=== PATIENT | female | born 1955 | race Caucasian/White ===

== ENCOUNTER → 2021-07-29 15:51 | Outpatient (CLI) | payer MEDICARE, SELFPAY ==
--- NOTE | ~2021-07-29 | MM_ITS ---
EXAMINATION: MM screening [facility] BI w cheri HISTORY: Screening mammogram TECHNIQUE: Craniocaudal and mediolateral oblique 3-D tomosynthesis images were obtained and synthetic 2-D images were generated. CAD analysis was submitted and interpreted. COMPARISON: 09/01/2014, 11/01/2010 BREAST PARENCHYMAL COMPOSITION: There are scattered areas of fibroglandular density. FINDINGS: There is no evidence of suspicious mass, calcification, or architectural distortion to sugg est malignancy in either breast. There has been no suspicious interval change. IMPRESSION: 1. No mammographic evidence of malignancy. 2. Recommend routine screening mammography in one year. BI-RADS Category 1: Negative Reviewed, dictated and finalized at location A.
== END ==
PROVIDERS: PCP Family Medicine; Visit Provider Family Medicine
DX: Z12.31 Encounter for screening mammogram for malignant neoplasm of breast (principal)
CPT/HCPCS: 77063; 77067

== ENCOUNTER → 2022-12-22 12:34 | Outpatient (CLI) | payer MEDICARE, SELFPAY ==
--- NOTE | ~2022-12-22 | MM_ITS ---
EXAMINATION: MM screening [facility] w cheri HISTORY: Screening mammogram TECHNIQUE: Craniocaudal and mediolateral oblique 3-D tomosynthesis images were obtained and synthetic 2-D images were generated. CAD analysis was submitted and interpreted. COMPARISON: 07/29/2021, 08/2014 bilateral screening mammogram examinations BREAST PARENCHYMAL COMPOSITION: There are scattered areas of fibroglandular density. FINDINGS: There is no evidence of suspicious mass, calcification, or architectural distortion to sugg est malignancy in either breast. There has been no suspicious interval change. IMPRESSION: 1. No mammographic evidence of malignancy. 2. Recommend routine screening mammography in one year. BI-RADS Category 1: Negative Reviewed, dictated and finalized at location A. [facility]
== END ==
PROVIDERS: PCP Family Medicine; Visit Provider Family Medicine
DX: Z12.31 Encounter for screening mammogram for malignant neoplasm of breast (principal)
CPT/HCPCS: 77063; 77067

== ENCOUNTER 2023-02-08 15:20 | Emergency (ER) | payer MEDICARE, SELFPAY ==
[2023-02-08] VITALS (18 sets, daily range): BP systolic 134–173; BP diastolic 62–80; PULSE 90–100; RESP 16–19; TEMP 37.1–37.3; O2SAT 92–100
--- NOTE | ~2023-02-08 | CT_ITS ---
EXAMINATION: CTA chest PE protocol DATE: 02/08/2023 21:26 INDICATION: Cough TECHNIQUE: Computed tomography angiography (CTA) of the chest was performed with 100 mL Omnipaque-350 intravenous contrast timed to evaluate the pulmonary arteries. Coronal maximum intensity projection 3D-reconstructions were created by the technologist. The dose-length product (DLP) was 243.73 mGy-cm. Automated exposure control and iterative reconstruction technique were employed. COMPARISON: 11/19/2010 FINDINGS: The pulmonary arteries are well-opacified. No pulmonary embolism is identified. There is ch ronic mucous impaction in the right lower lobe bronchus. The lungs are free of acute opacities. There is a 2 mm nodule of the left lower lobe. There is a 3 mm nodule of the right upper lobe. No pleural effusion or pneumothorax. Suture anchors are noted in the right humeral head. No pathologically enlar ged thoracic lymph nodes are identified. The heart size is normal. There is moderate thoracic spondyl osis. Calcified paratracheal and subcarinal lymph nodes are consistent with old granulomatous disease . IMPRESSION: 1. No pulmonary embolism or acute cardiopulmonary abnormality. Reviewed, dictated and finalized at location F.
--- NOTE | ~2023-02-08 | XR_ITS ---
EXAMINATION: XR chest 2V DATE: 02/08/2023 18:37 INDICATION: Cough TECHNIQUE: Frontal and lateral views of the chest are obtained COMPARISON: 11/19/2010 FINDINGS: The lungs are free of acute opacities. No pleural effusion or pneumothorax. The cardiomedia stinal silhouette is normal. There is severe thoracic spondylosis. There is S-shaped curvature of the thoracic spine. Suture anchors are noted in the right humeral head. IMPRESSION: 1. No acute cardiopulmonary abnormality. Reviewed, dictated and finalized at location F.
--- NOTE | ~2023-02-08 | CT_ITS ---
EXAMINATION: CT brain wo con INDICATION: Dizziness COMPARISON: None TECHNIQUE: Standard unenhanced head CT. The dose-length product (DLP) was 605.33 mGy-cm. The mA was a djusted according to patient size. Iterative reconstruction technique was employed. FINDINGS: There is no intracranial hemorrhage, acute infarction, or abnormal mass lesion. The ventric les are normal. There is no abnormal mass effect or midline shift. The wray-white matter differentiat ion is normal. The basal cisterns are patent. The orbits are normal. There is near complete opacifica tion of the visualized paranasal sinuses. The paranasal sinuses, mastoids and calvarium are normal. IMPRESSION: 1. No acute intracranial abnormality. 2. Pansinusitis. Reviewed, dictated and finalized at location F.
--- NOTE | 2023-02-08 15:29 | ECG_ITS ---
Measurements Intervals [place] Rate: 94 P: 34 [place]: 151 QRS: 53 QRSD: 78 T: 47 QT: 379 QTc: 476 Interpretive Statements SINUS RHYTHM BASELINE ARTIFACT NONSPECIFIC ST & T-WAVE ABNORMALITY BORDERLINE ECG NO PREVIOUS ECG AVAILABLE FOR COMPARISON Electronically Signed On 02-09-2023 16:30:05 CDT by Willi Crystal M.D.
--- NOTE | 2023-02-08 16:09 | PC.NURSE ---
Pt states she thinks she has UTi and urine specimen collected
--- NOTE | 2023-02-08 17:39 | ED.URI ---
HPI - URI/Sore Throat General Chief Complaint: Upper Respiratory Infection Stated Complaint: URI Time Seen by Provider: 02/08/23 17:38 Source: patient Mode of arrival: ambulatory Limitations: no limitations History of Present Illness HPI Narrative: Patient is a 67-year-old female with a history of depression, osteoarthritis presenting to the emergency department for evaluation of left ear pain, cough, shakiness. Patient reports symptoms began last week when she had subjective fever, chills and developed a runny nose and cough patient denied sore throat. Patient states that symptoms have persisted over the past week however reports no recurrent fever. She denies nausea or vomiting. She reports frontal chest pressure over the past 48 hours. She reports cough without hemoptysis or abnormal sputum changes. Patient denies wheezing. She does not smoke. She denies pleuritic pain. She does report shortness of breath. Patient denies recent sick contacts. No known history of symptomatic COVID infection. Patient denies leg swelling or calf pain. Patient denies any discharge from the ear. She reports mild dizziness. Related Data Home Medications Medication Instructions Recorded Confirmed cholecalciferol (vitamin D3) 25 1,000 unit PO DAILY 09/24/19 08/28/22 mcg (1,000 unit) capsule Allergies Allergy/AdvReac Type Severity Reaction Status Date / Time duloxetine Allergy Unknown Unknown Verified 02/08/23 17:42 paroxetine Allergy Unknown Unknown Verified 02/08/23 17:42 tetracycline Allergy Unknown Unknown Verified 02/08/23 17:42 Review of Systems Review of Systems: CONSTITUTIONAL: Reports resolved subjective fever EYES: Denies visual changes, redness, or discharge. ENT: Reports rhinorrhea and congestion, denies sore throat, reports left ear pain CARDIOVASCULAR: Reports chest pain without palpitations, or edema. RESPIRATORY: Reports cough and shortness of breath GASTROINTESTINAL: Denies abdominal pain, nausea, vomiting, or diarrhea. GENITOURINARY: Denies dysuria or hematuria. SKIN: Denies rash or itching. MUSCULOSKELETAL: Denies back pain, joint pain, or myalgia. NEUROLOGIC: Denies headache, numbness, or weakness. Reports shakiness, dizziness PSYCHIATRIC: Reports history of anxiety PMFSH Past Medical History Medical History Acid reflux Anxiety BMI 28.0-28.9,adult BMI 29.0-29.9,adult Depression GERD without esophagitis Headache Osteoarthritis of left knee Pain of right thumb Screening mammogram, encounter for Surgical History Surgical History History of hysterectomy History of left hip replacement History of repair of right rotator cuff History of right hip replacement History of right knee joint replacement History of spinal fusion L4 & L5 Status post fusion of wrist Left Family History Family History Father Alzheimer disease Mother Sibling No problems noted. Social History Social History Smoking status: Never smoker Second hand tobacco smoke exposure: No Alcohol intake: former Substance use: current Substance use type: marijuana Living arrangements: with family Occupation/Education: retired Additional occupation/education comments: [employer]. Gender identity (if verbalized by the patient): Female Exam Narrative: GENERAL: Awake, alert, conversant, pt tremulous and anxious appearing HEAD: Normocephalic, atraumatic. EYES: PERRLA and EOMI. ENT: Nares clear, no rhinorrhea or epistaxis. Mucous membranes moist. Tympanic membranes clear bilaterally without effusion, bulging, erythema or perforation. NECK: Supple. CHEST: No respiratory distress, breathing even and non labored, lungs are clear to auscultation bilaterally without wheezing, rhonchi, r
[2023-02-08] MEDS: LORazepam (*CRX) 1 MG TABLET PO (18:30)
--- NOTE | 2023-02-08 18:32 | PC.NURSE ---
Pt to CT and XRAY via stretcher at this time.
[2023-02-08 18:54] LABS: Appearance Urine Clear (Clear); Bacteria Urine None Seen /hpf; Bilirubin Urine Negative (Negative); Blood Urine 1+ (Negative); Color Urine Yellow (Yellow); Glucose Urine UA Negative (Negative); Ketones Urine Trace mg/dL (Negative); Leukocyte Esterase Ur Trace LEU/UL (Negative); Need Manual Microscopic Reviewed; Nitrate Urine Negative (Negative); Non Pathogenic Casts 0-2; Protein Urine Negative (Negative); Specific Grav Ur 1.003 (1.001-1.035); Squamous Epithelial Cell Urine None seen /hpf (Few); Urobilinogen Urine 0.2 mg/dL (<2.0); WBC Urine 0-5 /hpf; pH Urine 7.5 (5.0-9.0)
[2023-02-08 18:55] LABS: Add Urine Microscopic? YES
[2023-02-08 19:00] LABS: Influenza A QL RT-PCR Negative (Negative); Influenza B QL RT-PCR Negative (Negative); SARS-CoV-2 RNA PCR Negative
--- NOTE | 2023-02-08 19:22 | PC.NURSE ---
Patient report received from ADRIAN Palm. All questions answered and care of patient assumed.
[2023-02-08 19:49] LABS: Basophils Absolute Auto 0.1 K/mm3 (0.0-0.1); Basophils Percent Auto 0.5 % (0.2-1.2); Hematocrit 44.1 % (37.0-47.0); Hemoglobin 14.8 g/dL (12.0-15.0); Immature Granulocyte Absolute 0.18 K/mm3 (0.00-0.031); Immature Granulocyte Percent A 1.5 % (0-0.5); Lymphocytes Absolute Auto 2.53 K/mm3 (0.9-3.2); Lymphocytes Percent Auto 20.9 % (18.3-44.2); Mean Corpuscular HGB Conc 33.6 g/dl (32-36); Mean Corpuscular Hemoglobin 30.5 pg (26-34); Mean Corpuscular Volume 90.7 fl (80-100); Mean Platelet Volume 8.6 fl (7.4-10.4); Monocytes Absolute Auto 0.9 K/mm3 (0.1-0.6); Monocytes Percent Auto 7.6 % (2.6-8.5); Neutrophils Absolute Auto 8.4 K/mm3 (1.3-6.7); Neutrophils Percent Auto 69.5 % (45.5-73.1); Platelet Count Result 471 k/mm3 (150-375); Red Blood Count 4.86 M/mm3 (4.2-5.4); Red Cell Distribution Width 12.4 % (11.5-14.5); White Blood Count 12.1 K/mm3 (4.5-10.0)
[2023-02-08 20:04] LABS: Alanine Aminotransferase 18 U/L (6-35); Albumin Level 4.3 g/dL (3.5-5.1); Alkaline Phosphatase 95 U/L (38-126); Anion Gap 10 mmol/L (8-16); Aspartate Amino Transferase 21 U/L (14-36); Bilirubin,Total 0.8 mg/dL (0.2-1.3); Blood Urea Nitrogen 6 mg/dL (7-17); Calcium 9.1 mg/dL (8.4-10.2); Carbon Dioxide 28 mmol/L (22-30); Chloride 99 mmol/L (98-107); Estimated CRCL calculation 73 ml/min; Estimated Glomerular Filt Rate > 60; Glucose 131 mg/dL (65-110); Sodium 137 mmol/L (137-145)
[2023-02-08 20:08] LABS: D Dimer 0.55 ug/mL (<0.48)
[2023-02-08 20:12] LABS: NT Pro B Type Natriuretic Pept 558 pg/mL (19.9-100); Troponin I < 0.012 ng/mL (0.000-0.034)
[2023-02-08] MEDS: POTASSIUM CHLORIDE 20 MEQ PACKET (FOR LIQUID) 40 MEQ PO (21:00)
--- NOTE | 2023-02-08 21:25 | PC.NURSE ---
Patient off unit to CT.
[2023-02-08] MEDS: MAGNESIUM SULF 1 GM/D5W 100 ML 1 GM/100 ML BAG IVPB (22:23)
[2023-02-08] MEDS: AMOXICILLIN/CLAVULANATE K 875-125 MG TAB 1 TABLET PO (22:24)
== END 2023-02-08 23:46 | disposition home or self-care (01) ==
PROVIDERS: Emergency Medicine; Emergency Provider Emergency Medicine; PCP Family Medicine
DX: J01.40 Acute pansinusitis, unspecified (principal); Z20.822 Contact with and (suspected) exposure to COVID-19; K21.9 Gastro-esophageal reflux disease without esophagitis; M17.12 Unilateral primary osteoarthritis, left knee; F41.9 Anxiety disorder, unspecified; F32.A Depression, unspecified; Z90.710 Acquired absence of both cervix and uterus; Z96.643 Presence of artificial hip joint, bilateral; Z96.651 Presence of right artificial knee joint; Z98.1 Arthrodesis status; R06.02 Shortness of breath
CPT/HCPCS: 36415; 70450; 71046; 71275; 80053; 81001; 83880; 84443; 84484; 85025; 85380; 87636; 93005; 96365; 99284; A9270; J3475; Q9967